=== PATIENT | female | born 1950 | race Caucasian/White ===

== ENCOUNTER 2024-04-12 09:30 | Outpatient (AMB) | payer MEDICARE, MEDICAID, SELFPAY ==
--- NOTE | 2024-04-12 09:31 | A.OFFVIS_ITS ---
Vital Signs 04/12/24 09:32 Weight 162 lb 7.691 oz BP 130/78 Blood Pressure Location Rt brachial Position Sitting Pulse 55 Pulse Source Pulse Oximeter Pulse Oximetry (%) 91 L Oxygen Delivery Method Room Air Intake Visit Reasons: athritis/MR RECIEVED Intake Note: Patient present today for arthritis office visit. 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 She continues to have hand pain. She reports dx carpal tunnel syndrome 15 years ago. She has bilateral knee pain. Hx c-spine surgery with hardware. She is experiencing neck pain for awhile. She does not recall starting MTX, FA and leflunomide last visit. PFSH Family History Mother Psoriasis Father Psoriasis Social History Alcohol intake: never Patient Tobacco Use Status: Never used Tobacco Review of Systems Const All systems reviewed & are unremarkable except as noted in HPI and below Physical Exam Vital Signs: Last Vital Signs Pulse 55 04/12/24 09:32 BP 130/78 04/12/24 09:32 Pulse Ox 91 L 04/12/24 09:32 Oxygen Delivery Method Room Air 04/12/24 09:32 Const General: healthy appearing and comfortable Resp Effort & Inspection: normal respiratory effort Cardio Rate: regular rate Rhythm: regular rhythm Heart sounds: S1 normal heart sound present and S2 normal heart sound present Extrem Other: Tender bilateral MCPs. Chronic synovial thickening present bilateral MCPs 2-3. Tender PIPs bilateral. Tender bilateral knees with limted ROM Tender bilateral ankles and MTPs. Office Procedures AMB Joint Injection/Aspiration Joint Injection/Aspiration Details: Bilateral knees Prep: site was prepped using aseptic technique Procedure: The patient tolerated the procedure well Coding 07042 - Large joint Additional procedure code (CPT) needed (Modifier for bilateral procedure) Office Meds Kenalog 40 mg/mL suspension for injection Performing Provider: Raffi Nichole MD Performing Location: [facility] [facility] Administered by: Raffi Nichole MD on 04/12/24 12:12 Dose Route Admin Location Dispensed Lot Number Expiration Date [facility] Card Cutter 40 mg intra-articular right knee 1 mL [id number] [employer] 40 mg intra-articular left knee 1 mL [id number] [employer] lidocaine (PF) 10 mg/mL (1 %) injection solution Performing Provider: Raffi Nichole MD Performing Location: [facility] Administered by: Raffi Nichole MD on 04/12/24 12:12 Dose Route Admin Location Dispensed Lot Number Expiration Date [facility] Card Cutter 20 mg Infiltration bilateral knees 2 mL [id number] [facility] Assessment & Plan Assessment & Plan (1) Psoriatic arthritis: Comment: Uncontrolled. Not on DMARD treatment Code(s): L40.50 - Arthropathic psoriasis, unspecified Category: Medical Plan: Labs for disease and drug monitoring ordered. After lab results are reviewed, will consider sending rx MTX vs leflunomide. (2) Other penitentiary (current) drug therapy: Code(s): Z79.899 - Other penitentiary (current) drug therapy Category: Medical Plan: see above (3) Osteoarthritis of knees, bilateral: Comment: Uncontrolled pain. Code(s): M17.0 - Bilateral primary osteoarthritis of knee Category: Medical Plan: She received bilateral knee cortisone injections today. Encouraged exercise. (4) Carpal tunnel syndrome, bilateral: Comment: Uncontrolled. Left hand is more symptomatic than right hand. Code(s): G56.03 - Carpal tunnel syndrome, bilateral upper limbs Category: Medical Plan: rx cockup wrist braces prescribed to wear at night. Plan . Orders: Orders Aspartate Amino Transferase Today L40.50 - Arthropathic psoriasis, unspecified, Z79.899 - Other director long term care (current) drug therapy Creatinine Today L40.50 - Arthropathic psoriasis, unspecified, Z79.899 - Other director long term care (current) drug therapy Hepatitis B,C Profile Today L40.50 - Arthropathic psoriasis, unspecified, Z79.899 - Other director long term care (current) drug therapy AMB Joint Injection/Aspiration Today M17.0 - Bilateral primary osteoarthritis of knee Alanine Aminotransferase Today L40.50 - Arthropathic psoriasis, unspecified, Z79.899 - Other penitentiary (current) drug therapy C Reactive Protein Today L40.50 - Arthropathic psoriasis, unspecified, Z79.899 - Other penitentiary (current) drug therapy Complete Blood Count Auto Diff Today L40.50 - Arthropathic psoriasis, unspecified, Z79.899 - Other penitentiary (current) drug therapy Erythrocyte Sedimentation Rate Today L40.50 - Arthropathic psoriasis, unspecified, Z79.899 - Other director long term care (current) drug therapy T Spot TB Today L40.50 - Arthropathic psoriasis, unspecified, Z79.899 - Other penitentiary (current) drug therapy Medications: New Kenalog (triamcinolone acetonide) 80 mg (2 mL) intra-articular ONCE 2 mL 0RF NS M17.0 - Bilateral primary osteoarthritis of knee lidocaine (PF) 20 mg (2 mL) Infiltration ONCE 2 mL 0RF M17.0 - Bilateral primary osteoarthritis of knee [Bilateral cockup wrist brace] Wear at night only 2 ea 0RF Carpal tunnel syndrome G56.03 - Carpal tunnel syndrome, bilateral upper limbs Coding Level of Care Code Est Pt Level 4 (78140) Complex EM visit Add On G2211 Diagnoses Psoriatic arthritis L40.50 Other director long term care (current) drug therapy Z79.899 Osteoarthritis of knees, bilateral M17.0 Carpal tunnel syndrome, bilateral G56.03 CPT Codes Coding - 98001 Large joint: 30968 - Large joint ([id number])
[2024-04-12 09:32] VITALS: BP 130/78; PULSE 55; O2SAT 91
== END 2024-04-12 10:41 | disposition home or self-care (01) ==
PROVIDERS: Visit Provider Internal Medicine Rheumatology
DX: L40.50 Arthropathic psoriasis, unspecified (principal); Z79.899 Other long term (current) drug therapy; M17.0 Bilateral primary osteoarthritis of knee; G56.03 Carpal tunnel syndrome, bilateral upper limbs
CPT/HCPCS: 20610; 99214

== ENCOUNTER → 2024-04-12 09:30 | Outpatient (BNVA) | payer MEDICARE, SELFPAY | PROVIDERS: Visit Provider Internal Medicine Rheumatology | DX: M17.0 Bilateral primary osteoarthritis of knee (principal); L40.50 Arthropathic psoriasis, unspecified; G56.03 Carpal tunnel syndrome, bilateral upper limbs; Z79.899 Other long term (current) drug therapy | CPT/HCPCS: 20610; 99212; J2003; J3300 ==

== ENCOUNTER 2024-09-18 13:37 | Outpatient (REF) | payer MEDICARE, MEDICAID, SELFPAY ==
--- OUTSIDE RECORDS SUMMARY | 2024-09-18 17:47 | XMS_ITS | Continuity of Care Document ---
Author Organization [facility], Main Office Address [address] [place] [address] Assessment No assessment recorded. Plan of Treatment Reminders Order Date Submit Date Provider Last Modified By Organization Details Last Modified Time Details Appointments 7 DAYS 2024 10:50A M [facility] Not available Not available Not available Lab None recorded. Referral nephrolog ist referral 2024 025 ATHENAFAX Liset Ross DO, [address] [place], [address], 09/17/2024 14:18:33 Procedures None recorded. Surgeries None recorded. Imaging None recorded. Medication Orders None recorded. Patient TargetsNo targets recorded. Patient InstructionsNo instructions recorded. Reason for Referral Associate Professor Of Theology Referral for Ch ronic kidney disease stage 3A Referring Physician: Evelia Brennan, Internal Medicine, Encounter Date: 09/13/2024 Results Created Date Observation Date Name Description Value Unit Range Abnormal Flag Note LastModifiedBy Organization Detail LastModifiedTime 09/12/19 25 07/25/2024 , [facility] ardio gram No observ ation record ed. [email or web address] Not Available 08/28 22:38:01 09/12/19 25 12/31/2021 MAMMO , scree ramiro, digit al, bilat eral No observ ation record ed. [email or web address] Not Available 08/28 22:38:43 Result Notes None recorded. Problems Name Problem SNOMED Code Status Onset Date Resolution Date Notes Provider Name and Address Organization Details Recorded Time Anemia 137148459 [facility] Arthritis 9773102 Active 2024 Chanell Carranza m null, [place] [facility] 22:45:35 Meyer's esophagus 410139175 Active 2024 Chanell Carranza m null, [place] [facility] 22:45:40 Primary malignant neoplasm of right lung 202673072 Active 2024 Chanell Carranza m null, [place] - [facility] 5 22:45:49 Chronic kidney disease 901241448 Active 2024 Chanell Carranza m null, [place] - [facility] 5 22:46:03 Claustropho veto 98368326 Active 2024 Chanell Carranza m null, [place] [facility] 22:46:10 Chronic obstructive pulmonary disease 41066208 Active 2024 Chanell Carranza m null, [place] [facility] 5 22:46:16 Gastroesoph ageal reflux disease 547249189 Active 2024 Chanellaudra rojas null, [place] [facility] 22:46:21 Hypertensiv e disorder 62077752 Active 2024 Chanell rojas null, [place] [facility] 22:46:31 Hypocalcemi a 2790644 Active 2024 Chanell Carranza m null, [place] [facility] 22:46:38 Hypothyroid ism 86695747 Active 2024 Chanellaudra rojas null, [place] [facility] 22:46:44 Cyst of left ovary 5060273995477 9108 Active 2024 Chanell Carranza m null, [place] - [facility] 5 22:47:09 Major depressive disorder 971031291 Active 2024 Chanellaudra Carranza m null, [place] [facility] 22:47:30 Panic attack 719749048 Active 2024 Chanell Carranza m null, [place] [facility] 22:47:39 Psoriasis 8559544 Active 2024 Chanellaudra Carranza m null, [place] [facility] 22:47:48 Malignant tumor of kidney 916377119 Active 2024 Chanell fountain, [place] - [facility] 5 22:47:54 Right bundle branch block 31259736 Active 2024 Chanell rojas null, [place] - [facility] 5 22:47:59 Urinary incontinenc e 566689126 Active 2024 Chanell rojas null, [place] [facility] 22:48:10 Atrophic vaginitis 24611310 Active 2024 Chanell rojas null, [place] [facility] 22:48:21 Secondary hyperparath yroidism 68790719 Active 2024 B[facility] [address] [place] [address], [place], [address], 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 Procedures Surgical History Date Name Laterality Status Provider Name and Address Organization Details Recorded Time 12/31 Most [facility] 22:38:51 Cataract Surgery completed Chanell [facility] 22:48:35 bilobectomy of lung completed [facility] - [facility] 5 22:48:50 esophagogastroduodenoscopy completed [facility] - [facility] 5 22:49:43 Imaging Results None recorded. Procedure Notes None recorded. Medical Equipment None Reported. Allergies Allergen ID Allergen Name Allergen Category Reaction Reaction Severity Criticality Documentation Date Start Date Code Code System Note Provider Name and Address Organization Details Recorded Time 7587 house dust allergeni c extract environme nt,medica tion Not available Not available Not available 09/11/2024 47996 9 RxNorm Chanell fountain, [place] - [facility] 5 22:40:30 7588 mold extract environme nt Not available Not available Not available 09/11/2024 99392 8 RxNorm Chanell rojas null, [place] - [facility] 22:40:35 7589 grass pollen environme nt,medica tion Not available Not available Not available 09/11/2024 06585 UNK Chanell rojas null, [place] - [facility] 22:40:43 7590 amlodipin e medicatio n Not available Not available Not available 09/11/2024 55726 RxNorm [facility] [address] [facility], [place], [address], [place] [facility] 13:07:24 7591 barium sulfate medicatio n Not available Not available Not available 09/11/2024 1331 RxNorm [facility] [address] [facility], [facility] [address], [place], [address], [place] [facility] 13:07:36 7592 gabapenti n medicatio n Not available Not available Not available 09/11/2024 57853 RxNorm [facility] [address] [facility], [facility] [address], [place], [address], [place] [facility] 13:07:44 Medications Name Sig Start Date Stop Date Status Note LastModified by Organization Details LastModified Time atorvastati n 40 mg tablet Take 1 tablet every day by oral route. active Not Available Not Available No t Available cefpodoxime 200 mg tablet TAKE 1 TABLET BY MOUTH EVERY 12 HOURS FOR 3 DAYS 09/13 completed Not Available Not Available Not Available azithromyci n 250 mg tablet TAKE 2 TABLETS BY MOUTH TODAY, THEN TAKE 1 TABLET DAILY FOR 4 DAYS DIRECTED 09/13 completed Not Available Not Available Not Available citalopram 10 mg tablet Take 1 tablet every day by oral route. active Not Available Not Available No t Available prednisone 20 mg tablet TAKE 2 TABLETS BY MOUTH EVERY DAY FOR 5 DAYS 09/13 completed Not Available Not Available Not Available metoprolol succinate ER 100 mg tablet,exte nded release 24 hr Take 1 tablet every day by oral route. active Not Available Not Available No t Available leflunomide 10 mg tablet TAKE 1 TABLET DAILY 09/13 completed Not Available Not Available Not Available triamcinolo ne acetonide 0.1 % topical cream 1 APPLICATI ON TOPICALLY 3 TIMES A DAY,X14 DAYS 09/13 completed Not Available Not Available Not Available magnesium oxide 400 mg (241.3 mg magnesium) tablet Take 1 tablet every day by oral route. active Not Available Not Available No t Available levothyroxi ne 125 mcg tablet Take 1 tablet every day by oral route. active Not Available Not Available No t Available omeprazole 20 mg capsule,del ayed release Take 1 capsule every day by oral route. active Not Available Not Available No t Available folic acid 1 mg tablet TAKE 1 TABLET BY MOUTH EVERY DAY 09/13 completed Not Available Not Available Not Available zolpidem 5 mg tablet TAKE 1 TABLET BY MOUTH EVERYDAY AT BEDTIME 09/13 completed Not Available Not Available Not Available ergocalcife rol (vitamin D2) 1,250 mcg (50,000 unit) capsule Take 1 capsule every week by oral route. active Not Available Not Available No t Available colchicine 0.6 mg tablet PLEASE SEE ATTACHED FOR DETAILED DIRECTION S 09/13 completed Not Available Not Available Not Available lisinopril 40 mg tablet Take 1 tablet every day by oral route. active Not Available Not Available No t Available doxycycline hyclate 100 mg tablet TAKE 1 CAPSULE BY MOUTH EVERY 12 HOURS,X3 DAYS 09/13 completed Not Available Not Available Not Available mometasone 0.1 % topical solution USE TOPICALLY ON SCALP ONCE DAILY NEEDED. 09/13 completed Not Available Not Available Not Available Lactobacill us acidoph-L.b ulgaricus 1 million cell tablet TAKE 4 TABLETS BY MOUTH 3 TIMES A DAY FOR 3 DAYS 09/13 completed Not Available Not Available Not Available Vitals Date Recorded Body weight Body mass index (BMI) Body height Heart rate Oxygen saturation Oxygen saturation in Arterial blood by Pulse oximetry Systolic blood pressure Diastolic blood pressure Provider Name and Address Organization Details Last Updated DateTime 5 50049.8 5 g 27.7 kg/m2 157.48 cm 82 /min 98 % 98 % 140 mm[Hg] 90 mm[Hg] Mary reagan [place] - [facility] 5 14:41:43 Social History Question Answer Notes LastModified by Organizat ion Details LastModified Time Tobacco Smoking Status Former Smoker Chanell Burrell null, [place] - [facility] 09/11/2024 22:41:15 When Did You Quit Smoking? 11-15yearssi nceladmitri abarca mburlingham Information not available 09/13/2024 Sex: Unknown Functional Status None recorded. Mental Status None recorded. Family History Relationship Description Onset Age of this Age Resolved Age Notes LastModified by Organization Details LastModified Time Mother Diabetes mellitus [email or web address] Not available 08/28 22:41:38 Mother Hyperlipidem ia mburlingham Not available 08/28 22:42:13 Mother Hypertensive disorder m[place]ham Not available 08/28 22:43:18 Brother Diabetes mellitus mburlingham Not available 08/28 22:41:38 Brother Hyperlipidem ia mburlingham Not available 08/28 22:42:13 Brother Hyperlipidem ia mburlingham Not available 08/28 22:42:13 Brother Hypertensive disorder mburlingham Not available 08/28 22:43:18 Brother Hypertensive disorder mburlingham Not available 08/28 22:43:18 Brother Chronic obstructive pulmonary disease mburlingham Not available 08/28 22:44:08 Father Hyperlipidem ia mburlingham Not available 08/28 22:42:13 Father Hypertensive disorder m[place]lingham Not available 08/28 22:43:18 Father Coronary arterioscler osis m[place]lingham Not available 08/28 22:44:20 Father Dementia mburlingham Not availa ble 09/11/2024 22:44:26 Father Cerebrovascu lar accident mburlingham Not available 0 09/11/2024 22:44:34 Sister Hypertensive disorder m[place]lingham Not available 08/28 22:43:18 Sister Anxiety mburlingham Not availab le 09/11/2024 22:43:38 Sister Depressive disorder mburlingham Not available 08/28 22:43:49 Son Hypertensive disorder m[place]lingham Not available 08/28 22:43:18 Son Crohn's disease [facility] Not available 08/28 22:43:29 Medical History No medical history recorded. Gynecological History Statement/Question Response Most Recent Mammogram 12/31/2021 Obstetrics History GPAL:G 0 P 0 0 0 0 Immunizations Vaccine Type Date Status Note Provider Nam e and Address Organization Details Recorded Time Tdap 09/08/2011 completed Chanell fountain [place] - [facility] 09/11/2024 22:45:14 Past Encounters Encounter ID Performer Location Encounter Start Date Encounter Closed Date Diagnosis/Indication Diagnosis SNOMED-CT Code Diagnosis ICD10 Code Diagnosis Note [id number] [facility] Main Office [address] [place], [place] [address] [address] [place] [address] 09/13/2024 14:34:34 09/13/2024 15:17:01 First encounter by subject 837749529 Z76.89 The following time was spent on todays E/M encounter, including preparing for the visit, reviewing results, seeing the patient, and documentat ion on the date of service of the encounter: {{ 65#}} 97825 15-29 [id number] 03 30-44 [id number] 04 45-59 [id number] 05 60-74 [id number] 12 10-19 [id number] 13 20-29 [id number] 14 30-39 [id number] 15 40-54 minutes Limited records at time of visit, review of most recent PCP and hospitaliz ation, pt close follow up to facilitate care History of malignant neoplasm of kidney 485349930 Z85.528 followed by oncology Secondary hyperparathyroidism 51059806 N25.81 secondary to CKD, multiple recent hospitaliz ations for low Vitamin D3, magnesium Currently on Mg+ supplement , Vitamin D3 supplement History of malignant neoplasm of thoracic cavity structure 085027700 Z85.118 followed by oncology and pulmonolog y Anxiety 74670220 F41.9 chronic, stable Chronic ki dney disease stage 3A 782305668 N18.31 Health Concerns Section Related Observation LastModified by Organization Detai ls LastModified Time None Recorded Concern Status LastModified by Organization Details LastModified Time None Recorded Payers Encounter Date Sequence Insurance Name Policy Number Policy Beauchamp Covered Member ID Beauchamp Member ID Guarantor Name 09/13/2024 2 [place] [facility] Brandy Templeton [id number] Brandy Templeton 09/13/2024 1 [place] B[place] [employer] Brandy Templeton [id number] Brandy Templeton Notes Date Note Type Note Provider Name and Address Organization Details Recorded Time 5 text/html here to establish care, limited medical records available at visitShe is accompanied by friendPMH:Dr Nichole in [place] for RA, OA and psoriatic arthritismetastatic renal cell CA with left lung nodule , followed by oncology Dr Schafer and metastatic lung nodule from renal cell CA, Stage II right lung CA CA Dr Marie pulmonologySocial: lives alone with cat Darinel, former smoker quit 8 years, alcohol none, recreational drug noneHM: colonoscopy Cologuard < 2 years, mammogram declines, Immunizations due for Tdap Recent hospitalization for calcium and magnesium imbalance due to secondary hyperparathyroidism due to CKD Seen in ED for hypomagensium 09/07/24 with IV infusionSeen b her PCP B[facility] L[facility] [address] [place] [address] [address], [place], [address], [place] - [facility] 09/14/2024 15:13:04 OBGyn Episode No OBEpisode recorded.
--- OUTSIDE RECORDS SUMMARY | 2024-09-18 17:47 | XMS_ITS | Data Portability ---
Author Organization [facility], [employer] Address [address] [place] [address] Assessment No assessment recorded. Plan of Treatment Reminders Order Date Submit Date Provider Last Modified By Organization Details Last Modified Time Details Appointments 7 DAYS 2024 10:50A M [facility] Not available Not available Not available Lab None recorded. Referral nephrolog ist referral 2024 025 NERISENAFAKalpesh WillinghamLisetreji Melendezman DO, [address] [place], [address], 09/17/2024 14:18:33 Procedures None recorded. Surgeries None recorded. Imaging None recorded. Medication Orders None recorded. Patient TargetsNo targets recorded. Patient InstructionsNo instructions recorded. Reason for Referral Section Repairer Referral for Ch ronic kidney disease stage 3A Referring Physician: Evelia Brennan, Internal Medicine, Encounter Date: 09/13/2024 Results Created Date Observation Date Name Description Value Unit Range Abnormal Flag Note LastModifiedBy Organization Detail LastModifiedTime 09/12/1907/25/2024 US, echo ardio gram No observ ation record ed. [email or web address] Not Available 08/28 22:38:01 09/12/19 25 12/31/2021 MAMMO , scree ramiro, digit al, bilat eral No observ ation record ed. [email or web address] Not Available 08/28 22:38:43 Result Notes None recorded. Problems Name Problem SNOMED Code Status Onset Date Resolution Date Notes Provider Name and Address Organization Details Recorded Time Anemia 888479417 Active 2024 Chanell fountain [facility] 22:45:30 Arthritis 3833666 Active 2024 Chanell Burlingha m null, [place] [facility] 22:45:35 Meyer's esophagus 235723464 Active 2024 Chanell Carranza m null, [place] [facility] 22:45:40 Primary malignant neoplasm of right lung 577244679 Active 2024 Chanell Carranza m null, [place] - [facility] 5 22:45:49 Chronic kidney disease 765657106 Active 2024 Chanell Carranza m null, [place] [facility] 22:46:03 Claustropho veto 20426137 Active 2024 Chanell Carranza m null, [place] [facility] 22:46:10 Chronic obstructive pulmonary disease 50893269 Active 2024 Chanell Carranza m null, [place] [facility] 22:46:16 Gastroesoph ageal reflux disease 656127112 Active 2024 Chanell rojas null, [place] - [facility] 22:46:21 Hypertensiv e disorder 69489891 Active 2024 Chanell Carranza m null, [place] [facility] 22:46:31 Hypocalcemi a 0953485 Active 2024 Chanell Carranza m null, [place] - [facility] 22:46:38 Hypothyroid ism 90388561 Active 2024 Chanell Carranza m null, [place] - [facility] 22:46:44 Cyst of left ovary 0911745034089 9108 Active 2024 Chanell Carranza m null, [place] - [facility] 22:47:09 Major depressive disorder 994780254 Active 2024 Chanell Carranza m null, [place] [facility] 22:47:30 Panic attack 473639619 Active 2024 Chanell Carranza m null, [place] [facility] 22:47:39 Psoriasis 6246568 Active 2024 Chanell Carranza m null, [place] [facility] 22:47:48 Malignant tumor of kidney 400351500 Active 2024 Chanell rojas null, [place] - [facility] 22:47:54 Right bundle branch block 52164204 Active 2024 Chanell rojas null, [place] - [facility] 22:47:59 Urinary incontinenc e 216150150 Active 2024 Chanell rojas null, [place] - [facility] 22:48:10 Atrophic vaginitis 46676954 Active 2024 Chanell rojas null, [place] - [facility] 22:48:21 Secondary hyperparath yroidism 18484591 Active [address] [address] [address] [place] [address], [place], [place], [address], [place] [facility] 12:06:55 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 Procedures Surgical History Date Name Laterality Status Provider Name and Address Organization Details Recorded Time 12/31 Most Recent Mammogram completed Chanell [place] - [facility] 22:38:51 Cataract Surgery completed [facility] 22:48:35 bilobectomy of lung completed [facility] [place] [facility] 22:48:50 esophagogastroduodenoscopy completed [facility] [place] [facility] 22:49:43 Imaging Results Imaging Date Name Status LastModified by Organization Details LastModified Time 07/25/2024 US, echocardiogram completed [facility] Infor mation not available 09/11/2024 22:38:01 12/31/2021 MAMMO, screening, digital, bilateral completed [facility] Information not available 09/11/2024 22:38:43 Procedure Notes None recorded. Medical Equipment None Reported. Allergies Allergen ID Allergen Name Allergen Category Reaction Reaction Severity Criticality Documentation Date Start Date Code Code System Note Provider Name and Address Organization Details Recorded Time 7587 house dust allergeni c extract environme nt,medica tion Not available Not available Not available 09/11/2024 36703 9 RxNorm Chanell rojas null, [place] - [facility] 22:40:30 7588 mold extract environme nt Not available Not available Not available 09/11/2024 12792 8 RxNorm Chanell rojas null, [place] - [facility] 22:40:35 7589 grass pollen environme nt,medica tion Not available Not available Not available 09/11/2024 45693 UNK Chanell rojas null, [place] - [facility] 22:40:43 7590 amlodipin e medicatio n Not available Not available Not available 09/11/2024 46026 RxNorm [facility] L[facility] [address] [facility], [facility] [address], [place], [address], [facility] - [facility] 13:07:24 7591 barium sulfate medicatio n Not available Not available Not available 09/11/2024 1331 RxNorm B[facility] LIGHT [address] [facility], [facility] [address], [place], [address], [facility] - [facility] Primary 13:07:36 7592 gabapenti n medicatio n Not available Not available Not available 09/11/2024 83342 RxNorm [facility] L[facility] [address] [facility] [address], [place], [place], [address], [facility] 5 13:07:44 Medications Name Sig Start Date Stop [...] and Address Organization Details Last Updated DateTime 95646.8 5 g 27.7 kg/m2 157.48 cm 82 /min 98 % 98 % 140 mm[Hg] 90 mm[Hg] Mary reagan [place] [facility] 14:41:43 Social History Question Answer Notes LastModified by Organizat ion Details LastModified Time Tobacco Smoking Status Former Smoker Chanell Burrell [facility] [place] [facility] 09/11/2024 22:41:15 When Did You Quit Smoking? 11-15yearssi ncelastcigar ette mburlingham Information not available 09/13/2024 Sex: Unknown [...] Not available 08/28 22:43:18 Son Crohn's disease mburlingham Not available 08/28 22:43:29 Medical History No medical history recorded. Gynecological History Statement/Question Response Most Recent Mammogram 12/31/2021 Obstetrics History GPAL:G 0 P 0 0 0 0 Immunizations Vaccine Type Date Status Note Provider Nam e and Address Organization Details Recorded Time Tdap 09/08/2011 completed Chanell fountain [place] - [facility] 09/11/2024 22:45:14 Past Encounters Encounter ID Performer Location Encounter Start Date Encounter Closed Date Diagnosis/Indication Diagnosis SNOMED-CT Code Diagnosis ICD10 Code Diagnosis Note [id number] B[facility] L[facility] Main Office [address] [place] [address] [address] [facility] [place] [address] 09/13/2024 14:34:34 09/13/2024 15:17:01 First encounter by subject 799920195 Z76.89 The following time was spent on todays E/M encounter, including preparing for the visit, reviewing results, seeing the patient, and documentat ion on the date of service of the encounter: {{ 65#}} 97807 15-29 03 30-44 [id number] 04 45-59 [id number] 05 60-74 [id number] 12 10-19 [id number] 13 20-29 amqbosz048 14 30-39 yxunkvc449 15 40-54 minutes Limited records at time of visit, review of most recent PCP and hospitaliz ation, pt close follow up to facilitate care History of malignant neoplasm of kidney 836344629 Z85.528 followed by oncology Secondary hyperparathyroidism 39159447 N25.81 secondary to CKD, multiple recent hospitaliz ations for low Vitamin D3, magnesium Currently on Mg+ supplement , Vitamin D3 supplement History of malignant neoplasm of thoracic cavity structure 105264139 Z85.118 followed by oncology and pulmonolog y Anxiety 39739939 F41.9 chronic, stable Chronic ki dney disease stage 3A 469511727 N18.31 Health Concerns Section Related Observation LastModified by Organization Detai ls LastModified Time None Recorded Concern Status LastModified by Organization Details LastModified Time None Recorded Advance Directives Directive None Recorded Payers Encounter Date Sequence Insurance Name Policy Number Policy Beauchamp Covered Member ID Beauchamp Member ID Guarantor Name 09/13/2024 2 [place] Brandy Templeton [id number] Brandy Templeton 09/13/2024 1 [place] [employer] Brandy Templeton [id number] Brandy Templeton Notes Date Note Type Note Provider Name and Address Organization Details Recorded Time 5 text/html here to establish care, limited medical records available at visitShe is accompanied by friendPMH:Dr Nichole in [place] for RA, OA and psoriatic arthritismetastatic renal cell CA with left lung nodule , followed by oncology Dr Schafer and metastatic lung nodule from renal cell CA, Stage II right lung CA CA Dr Marie pulmonologySocial: lives alone with theodore Tena, former smoker quit 8 years, alcohol none, recreational drug noneHM: colonoscopy Cologuard < 2 years, mammogram declines, Immunizations due for Tdap Recent hospitalization for calcium and magnesium imbalance due to secondary hyperparathyroidism due to CKD Seen in ED for hypomagensium 09/07/24 with IV infusionSeen b her PCP BEVERLY LIGHT [address] [place] [address], [address], [place] [facility] 09/14/2024 15:13:04 OBGyn Episode No OBEpisode recorded.
[2024-09-18 18:23] LABS: MANUAL DIFF FLAG NO
[2024-09-18 18:37] LABS: Basophils Absolute Auto 0.1 X10*3/uL (0.0-0.2); Basophils Percent Auto 1.3 % (0-2); Eosinophils Absolute Auto 0.2 X10*3/uL (0.0-0.4); Eosinophils Percent Auto 3.3 % (0-4); Hematocrit 32.2 % (37.0-47.0); Hemoglobin 10.3 g/dl (12.0-16.0); Imm Gran Abs Auto 0.03 X10*3/uL (0.00-0.03); Imm Gran Pct Auto 0.5 % (0.0-0.4); Lymphocytes Absolute Auto 1.6 X10*3/uL (1.2-4.9); Lymphocytes Percent Auto 25.9 % (20-40); Mean Platelet Volume 11.1 fL (9.4-12.3); Monocytes Absolute Auto 0.6 X10*3/uL (0.1-1.2); Monocytes Percent Auto 9.1 % (2-11); Neutrophils Absolute Auto 3.7 x10*3/uL (2.0-8.3); Neutrophils Percent Auto 59.9 % (45-73); Platelet Count 292 X10*3/uL (160-400); Red Blood Count 3.32 X10*6/uL (4.20-5.50); Red Cell Distribution Width 14.7 % (11.0-16.0); White Blood Count 6.1 X10*3/uL (4.8-10.8)
[2024-09-18 18:51] LABS: Alanine Aminotransferase 18 U/L (0-31); Aspartate Amino Transferase 27 U/L (5-31); Estimated Glomerular Filt Rate 49
== END 2024-09-18 13:38 | disposition home or self-care (01) ==
LOC: HO.HKASLDS 13:37
PROVIDERS: PCP Family Medicine; Visit Provider Internal Medicine Rheumatology
DX: M25.511 Pain in right shoulder (principal); M25.512 Pain in left shoulder; Z79.60 Long term (current) use of unspecified immunomodulators and immunosuppressants; L40.50 Arthropathic psoriasis, unspecified; G89.29 Other chronic pain; Z79.899 Other long term (current) drug therapy; G56.03 Carpal tunnel syndrome, bilateral upper limbs; M17.0 Bilateral primary osteoarthritis of knee
CPT/HCPCS: 20610; 36415; 82565; 84450; 84460; 85025; 99212; J2003; J3300

== ENCOUNTER 2024-09-18 13:37 | Outpatient (AMB) | payer MEDICARE, MEDICAID, SELFPAY ==
[2024-09-18 13:43] VITALS: BP 110/60; PULSE 58; O2SAT 98; BMI 27.4
--- NOTE | 2024-09-18 13:43 | A.OFFVIS_ITS ---
Vital Signs 09/18/24 13:43 Height 5 ft 2 in Weight 149 lb 11.102 oz BMI 27.4 BP 110/60 Blood Pressure Location Rt brachial Position Sitting Pulse 58 Pulse Oximetry (%) 98 Oxygen Delivery Method Room Air Intake Visit Reasons: Follow Up 3mo Intake Note: Patient present today for arthritis office visit. Accompanied by: sister in law Allergies No Known Allergies Allergy (Verified 09/18/24 13:49) HPI HPI Follow Up 3mo: Details: Patient's [id number] eyes present during visit. MTX caused stomach upset, bloating, dirrhea, nausea. She was taking folic acid every day. She does not recall if she took methotrexate weekly. She may have taken methotrexate 1 tablet daily. She had admissions for influenza, pneumonia, and electrolyte abnormalities in the last 2 months. She had low vitamin-D, magnesium and abnormal calcium. Her parathyroid hormone was elevated. She was given magnesium and calcium in the hospital. She has been prescribed vitamin-D and magnesium supplement. Weakness has improved. She had muscle cramps in her feet when her magnesium was very low. She continues to have pain in her muscles. Knee cortisone injections lasted at least 2 months. [facility] Medical History Vitamin B 12 deficiency Parathyroid abnormality Family History Mother Psoriasis Father Psoriasis Social History Alcohol intake: never Patient Tobacco Use Status: Never used Tobacco Review of Systems Const All systems reviewed & are unremarkable except as noted in HPI and below Physical Exam Vital Signs: Last Vital Signs Pulse 58 09/18/24 13:43 BP 110/60 09/18/24 13:43 Pulse Ox 98 09/18/24 13:43 Oxygen Delivery Method Room Air 09/18/24 13:43 BMI result Body Mass Index 27.4 Const Other: General: Comfortable CVS: RRR Respiratory: clear to auscultation bilaterally. Good respiratory effort Skin: No lesions seen MSK: Tender right 3rd MCP and left PIPs. Tender bilateral shoulders. Right s houlder abduction 90 degrees, left shoulder abduction 110 degrees with full internal rotation but limited full external rotation. Tender bilateral knees on palpation. Valgus deformity of bilateral knees. Tender ankles. No synovitis. Office Procedures AMB Joint Injection/Aspiration Joint Injection/Aspiration Details: Bilateral knee joints Prep: site was prepped using aseptic technique Injected into each joint: 40 mg of, Kenalog, with 1 mL of and 1% plain lidocaine using 25 gauge 1-1/2 inch needle Procedure: The patient tolerated the procedure well. Postprocedure protocol was discussed with patient. Coding 43880 - Bilateral Large Joint Procedure code (CPT) selection complete AMB Joint Injection/Aspiration Coding 60580 - Bilateral Large Joint Procedure code (CPT) selection complete Office Meds lidocaine (PF) 10 mg/mL (1 %) injection solution Performing Provider: Raffi Nichole MD Performing Location: [facility] [place] [facility] [place] [facility] Administered by: Raffi Nichole MD on 09/18/24 21:02 Dose Route Admin Location Dispensed Lot Number Expiration Date [facility] [employer] 10 mg Infiltration 2 mL [id number] [employer] Kenalog 40 mg/mL suspension for injection Performing Provider: Raffi Nichole MD Performing Location: [facility] [place] [facility] Administered by: Raffi Nichole MD on 09/18/24 21:02 Dose Route Admin Location Dispensed Lot Number Expiration Date [facility] [employer] 40 mg intra-articular 1 mL [id number] [employer] lidocaine (PF) 10 mg/mL (1 %) injection solution Performing Provider: Raffi Nichole MD Performing Location: [facility] [place] [facility] Administered by: Raffi Nichole MD on 09/18/24 21:02 Dose Route Admin Location Dispensed Lot Number Expiration Date [facility] [employer] 10 mg Infiltration 2 mL [id number] [employer] Kenalog 40 mg/mL suspension for injection Performing Provider: Raffi Nichole MD Performing Location: [facility] [place] [facility] Administered by: Raffi Nichole MD on 09/18/24 21:02 Dose Route Admin Location Dispensed Lot Number Expiration Date [facility] [employer] 40 mg intra-articular 1 mL [id number] [facility] Assessment & Plan Assessment & Plan (1) Psoriatic arthritis: Comment: Uncontrolled. She may have taken methotrexate tablet daily instead of 12.5 mg once weekly contributing to GI side effects. I am ordering labs. If labs are stable, I will prescribe methotrexate 12.5 mg once week and folic acid 2 mg daily to reduce the risk of GI side effects. We discussed the importance of taking methotrexate as prescribed. Code(s): L40.50 - Arthropathic psoriasis, unspecified Category: Medical Plan: Labs for disease and drug monitoring ordered. After lab results are reviewed, I will consider sending rx MTX 12.5 mg once weekly and folic acid 2 mg daily. She will then need labs 1 month after methotrexate is restarted: CBC, creatinine, AST, ALT. Return to clinic in 3 months (2) Bilateral shoulder pain: Comment: Limited range of motion. Chronic pain. I suspect osteoarthritis is contributi ng. Code(s): M25.511 - Pain in right shoulder; M25.512 - Pain in left shoulder Category: Medical Qualifiers: Chronicity: chronic Qualified Code(s): M25.511 - Pain in right shoulder; M25.512 - Pain in left shoulder; G89.29 - Other chronic pain Plan: Bilateral x-rays ordered. Patient prefers to have x-rays done in [place]. Requisition given to patient. She will benefit from PT but would like to defer at this time Return to clinic in 3 months (3) Other termite control servicer (current) drug therapy: Code(s): Z79.899 - Other penitentiary (current) drug therapy Category: Medical Plan: see above (4) Carpal tunnel syndrome, bilateral: Comment: Uncontrolled. Left hand is more symptomatic than right hand. Code(s): G56.03 - Carpal tunnel syndrome, bilateral upper limbs Category: Medical Plan: rx cockup wrist braces prescribed to wear at night. (5) Osteoarthritis of knees, bilateral: Comment: Uncontrolled pain. Last cortisone injections lasted 2 months. Code(s): M17.0 - Bilateral primary osteoarthritis of knee Category: Medical Plan: She received bilateral knee cortisone injections today. Encouraged exercise. Return to clinic in 3 months Plan . Orders: Orders XR shoulder RT min 2V Today M25.511 - Pain in right shoulder, M25.512 - Pain in left shoulder, Z79.899 - Other termite control servicer (current) drug therapy XR shoulder LT min 2V Today M25.511 - Pain in right shoulder, M25.512 - Pain in left shoulder AMB Joint Injection/Aspiration Today M17.0 - Bilateral primary osteoarthritis of knee AMB Joint Injection/Aspiration Today M17.0 - Bilateral primary osteoarthritis of knee Medications: Refilled [Bilateral cockup wrist brace] Wear at night only 2 ea 0RF Carpal tunnel syndrome G56.03 - Carpal tunnel syndrome, bilateral upper limbs Coding Level of Care Code Est Pt Level 4 (13966) Complex EM visit Add On G2211 Diagnoses Psoriatic arthritis L40.50 Chronic pain of both shoulders M25.511; M25.512; G89.29 Chronicity: chronic Other penitentiary (current) drug therapy Z79.899 Carpal tunnel syndrome, bilateral G56.03 Osteoarthritis of knees, bilateral M17.0 CPT Codes Coding - 12569 - Bilateral Large Joint: 36918 - Bilateral Large Joint ([id number]) Coding - 98461 - Bilateral Large Joint: 40860 - Bilateral Large Joint ([id number])
== END 2024-09-18 14:32 | disposition home or self-care (01) ==
LOC: HO.RHES 13:38
PROVIDERS: PCP Family Medicine; Visit Provider Internal Medicine Rheumatology
DX: L40.50 Arthropathic psoriasis, unspecified (principal); M25.511 Pain in right shoulder; M25.512 Pain in left shoulder; G89.29 Other chronic pain; Z79.899 Other long term (current) drug therapy; G56.03 Carpal tunnel syndrome, bilateral upper limbs; M17.0 Bilateral primary osteoarthritis of knee
CPT/HCPCS: 20610; 99214

== ENCOUNTER 2024-12-19 13:38 | Outpatient (AMB) | payer MEDICARE, MEDICAID, SELFPAY ==
--- NOTE | 2024-12-19 13:40 | MHC.OFFVIS ---
Vital Signs 12/19/24 13:44 Height 5 ft 2 in Weight 153 lb 6 oz BMI 28.0 BP 150/80 H Blood Pressure Location Rt brachial Position Sitting Pulse 73 Pulse Source Pulse Oximeter Pulse Oximetry (%) 95 Oxygen Delivery Method Room Air Intake Visit Reasons: 3 months Intake Note: Patient present today for arthritis office visit. Accompanied by: sister in law Allergies No Known Allergies Allergy (Verified 09/18/24 13:49) HPI HPI 3 months: Details: She did not do labs after taking MTX. Wearing wrist braces with benefit. Left knee pain 09/06. PFSH Medical History Vitamin B 12 deficiency Parathyroid abnormality Family History Mother Psoriasis Father Psoriasis Social History Alcohol intake: never Patient Tobacco Use Status: Never used Tobacco Physical Exam Vital Signs: Last Vital Signs Pulse 73 12/19/24 13:44 BP 150/80 H 12/19/24 13:44 Pulse Ox 95 12/19/24 13:44 Oxygen Delivery Method Room Air 12/19/24 13:44 BMI result Body Mass Index 28.0 Const Other: General: Comfortable CVS: RRR Respiratory: clear to auscultation bilaterally. Good respiratory effort Skin: No lesions seen MSK: Synovitis left 2nd MCP, tender left 2nd MCP and 3rd MCP. Tender bilateral shoulders. Right shoulder abduction 90 degrees, left shoulder abduction 110 degrees with full internal rotation but limited full external rotation. Tender bilateral knees on palpation. Valgus deformity of bilateral knees. Tender ankles. Office Procedures AMB Joint Injection/Aspiration Joint Injection/Aspiration Details: Left knee joint Prep: site was prepped using aseptic technique Injected: 40 mg of, Kenalog, with 1 mL of and 1% plain lidocaine Procedure: Informed verbal consent was obtained. The patient tolerated the procedure well. Postprocedure protocol was discussed with patient. Coding 07480 - Large joint Procedure code (CPT) selection complete Office Meds lidocaine (PF) 10 mg/mL (1 %) injection solution Performing Provider: Raffi Nichole MD Performing Location: [facility] – [place] [facility] Administered by: Alfredo Wing RN on 12/19/24 14:16 Dose Route Admin Location Dispensed Lot Number Expiration Date [facility] [place] [employer] 10 mg Infiltration 2 mL [id number] 10/27/26 28949-535-49 [employer] Total Dispensed Waste 2 mL 50 % Kenalog 40 mg/mL suspension for injection Performing Provider: Raffi Nichole MD Performing Location: [facility] – [place], [place] [facility] Administered by: Alfredo Wing RN on 12/19/24 14:16 Dose Route Admin Location Dispensed Lot Number Expiration Date [facility] [place] [employer] 40 mg intra-articular 1 mL [id number] 12/27/25 [address]-9 [employer] Total Dispensed Waste 1 mL 0 % Assessment & Plan Assessment & Plan (1) Psoriatic arthritis: Comment: Uncontrolled. She did not receive refill for methotrexate because she did not complete labs required for drug monitoring Code(s): L40.50 - Arthropathic psoriasis, unspecified Category: Medical Plan: Restart MTX 12.5 mg once weekly and folic acid 2 mg daily. She will then need labs 1 month after methotrexate is restarted: CBC, creatinine, AST, ALT. Lab requisition given to patient to have done local to her home. Return to clinic in 3 months (2) Bilateral shoulder pain: Comment: Chronic. Limited range of motion right worse than left. Left x-ray shows mild osteoarthritis. Right x-ray is normal. I suspect chronic rotator cuff tendinopathy contributing to her limited range of motion and pain. Code(s): M25.511 - Pain in right shoulder; M25.512 - Pain in left shoulder Category: Medical Qualifiers: Chronicity: chronic Qualified Code(s): M25.511 - Pain in right shoulder; M25.512 - Pain in left shoulder; G89.29 - Other chronic pain Plan: PT ordered for patient to have done local to her home in [place] Consider cortisone injection of right shoulder if range of motion does not improve with PT Return to clinic in 3 months (3) Other [facility] (current) drug therapy: Code(s): Z79.899 - Other superintendent terminal (current) drug therapy Category: Medical Plan: see above (4) Carpal tunnel syndrome, bilateral: Comment: Improved with wearing wrist braces at night. Left hand is more symptomatic than right hand. Code(s): G56.03 - Carpal tunnel syndrome, bilateral upper limbs Category: Medical Plan: Continue to wear wrist braces at night (5) Osteoarthritis of knees, bilateral: Comment: Uncontrolled pain in left knee. Code(s): M17.0 - Bilateral primary osteoarthritis of knee Category: Medical Qualifiers: Osteoarthritis type: primary Qualified Code(s): M17.0 - Bilateral primary osteoarthritis of knee Plan: She received cortisone injection to left knee Return to clinic in 3 months (6) Primary osteoarthritis, left shoulder: Code(s): M19.012 - Primary osteoarthritis, left shoulder Category: Medical Plan . Orders: Orders PT Evaluation and Treatment Today G89.29 - Other chronic pain, M19.012 - Primary osteoarthritis, left shoulder, M25.511 - Pain in right shoulder, M25.512 - Pain in left shoulder AMB Joint Injection/Aspiration Today M17.0 - Bilateral primary osteoarthritis of knee Medications: Refilled folic acid 2 mg (2 x 1 mg) PO DAILY 60 tabs 11RF folic acid 2 mg (2 x 1 mg) PO DAILY 60 tabs 11RF methotrexate sodium Take 5 tablets once weekly. Labs needed in 4 weeks. 12.5 mg (5 x 2.5 mg) PO QWEEK 28 days 20 tabs 0RF methotrexate sodium Take 5 tablets once weekly. Labs needed in 4 weeks. 12.5 mg (5 x 2.5 mg) PO QWEEK 20 tabs 0RF 28 days Coding Level of Care Code Est Pt Level 4 (37072) Complex EM visit Add On G2211 Diagnoses Psoriatic arthritis L40.50 Chronic pain of both shoulders M25.511; M25.512; G89.29 Chronicity: chronic Other penitentiary (current) drug therapy Z79.899 Carpal tunnel syndrome, bilateral G56.03 Primary osteoarthritis of both knees M17.0 Osteoarthritis type: primary Primary osteoarthritis, left shoulder M19.012 CPT Codes Coding - 85939 Large joint: 17275 - Large joint ([id number])
[2024-12-19 13:44] VITALS: BP 150/80; PULSE 73; O2SAT 95; BMI 28.0
--- OUTSIDE RECORDS SUMMARY | 2024-12-19 14:16 | XMS_ITS | Data Portability ---
Author Organization [place] - [facility], [employer] Address [address] [place] [id number] Assessment Encounter Date Assessment Date Assessment LastModified by Organization Details LastModified Time 09/20/2024 09/20/2024 The following ti me was spent on todays E/M encounter, including preparing for the visit, reviewing results, seeing the patient, and documentation on the date of service of the encounter: 91331 15-29 minutes 07822 30-44 minutes 73744 45-59 minutes 38942 60-74 minutes 83857 10-19 minutes 85771 20-29 minutes 47515 30-39 minutes 86567 40-54 minutes The following time was spent on todays E/M encounter, including preparing for the visit, reviewing results, seeing the patient, and documentation on the date of service of the encounter: 40 21599 15-29 minutes 35386 30-44 minutes 08658 45-59 minutes 96480 60-74 minutes 26954 10-19 minutes 29463 20-29 minutes 62058 30-39 minutes [id number] 40-54 minutes [email or web address] Not available 09/20/2024 13:17:08 09/28/2024 09/28/2024 Assessment - Possible low magnesium levels contributing to foot swelling and pain. - Hyperparathyroidism and vitamin D deficiency identified as underlying issues. - Potential plantar fasciitis causing foot pain. - Calcification of the mitral valve noted, which may contribute to fluid retention and electrolyte imbalances, though not directly related to current symptoms. Plan - Perform lab work today to assess magnesium level, calcium level, kidney function, and other electrolytes. This will help determine the cause of symptoms and guide further treatment. - Use Tylenol for pain management, avoiding ibuprofen due to existing kidney problems. - Apply topical Voltaren gel to the underside of the heels to alleviate pain associated with potential plantar fasciitis. - Implement ice and elevation for foot discomfort to reduce swelling and pain. - Monitor symptoms closely, and if there is a change such as feeling weak, confused, or generally unwell, go to the emergency room immediately due to the history of low electrolytes. - Blood pressure improved on recheck. Prescription - Voltaren gel, topical application on the underside of the heels for pain relief. Appointments - Lab work appointment today in the office for blood draw. During this encounter, 2 of the 3 elements of MDM addressed: (1)Number and Complexity of problems: 1 or more chronic illness with exacerbation, progression, or side effects of treatment (2)Amount/Complexity of data (need 1 out of 3 categories): Category 1: Any combination of 3 from the following: Review of prior external notes from each unique source, review of results of each unique test, ordering of each unique test, assessment requiring an independent historian) (3)Moderate Risk of morbidity from additional diagnostic testing or treatment (one needed): . [email or web address] Not available 09/28/2024 10:00:29 10/09/2024 10/09/2024 During this encounter, 2 of the 3 elements of MDM addressed: (1)Number and Complexity of problems: 1 or more chronic illness with exacerbation, progression, or side effects of treatment (2)Amount/Complexity of data (need 1 out of 3 categories): (3)Moderate Risk of morbidity from additional diagnostic testing or treatment (one needed): Prescription Drug management. [email or web address] Not available 10/09/2024 15:38:09 Plan of Treatment Reminders Order Date Submit Date Provider Last Modified By Organization Details Last Modified Time Details Appointments FOLLOW UP 2024 01:30P BEVERLY LONDON Not available Not available Not available Lab TSH + free T4, serum 2024 025 SN[facility], [address], [place], [address], 10/10/2024 10:06:51 calcium, ionized, quant ISE, serum or plasma 2024 025 SNOW [facility], [address], [place], [address], 09/29/2024 20:06:18 CMP, serum or plasma 2024 025 SNOW [facility], [address], [place], [address], 09/29/2024 20:06:18 magnesium , serum or plasma 2024 025 SNOW [facility], [address], [place], [address], 09/29/2024 20:06:18 Referral nephrolog ist referral 2024 025 [place] [address] [address] , [address] [place], [address], 11/06/2024 09:08:35 Procedures None recorded. Surgeries None recorded. Imaging None recorded. Medication Orders metoprolo l succinate ER 100 mg tablet,ex tended release 24 hr 2024 025 [id number], [address] [place], [address], 10/09/2024 15:36:14 cephalexi n 250 mg capsule 2024 025 [id number], [address] [place], [address], 10/09/2024 15:36:15 trazodone 50 mg tablet 2024 025 [facility][id number], [address] [place], [address], 09/20/2024 11:02:12 Patient TargetsNo targets recorded. Patient InstructionsNo instructions recorded. Reason for Referral [employer] General Supervisor Referral for Ch ronic kidney disease stage 3A Referring Physician: Evelia Brennan, Internal Medicine, Encounter Date: 09/13/2024 Results Created Date Observation Date Name Description Value Unit Range Abnormal Flag Note LastModifiedBy Organization Detail LastModifiedTime 09/29/19 25 09/28/2024 COMP. METAB OLIC PANEL (14) sodium 142 mmol/ L 134-14 4 normal Not Available [facility] ([facility]) [address] [facility] [place], [address], 09/29/2024 20:06:18 09/29/19 25 09/28/2024 COMP. METAB OLIC PANEL (14) chloride 103 mmol/ L 96-106 normal Not Available [facility] ([facility]) [address] [facility] [place], [address], 09/29/2024 20:06:18 09/29/19 25 09/28/2024 COMP. METAB OLIC PANEL (14) bilirubin, total 0.5 mg/dL 0.0-1. 2 normal Not Available [facility] ([facility]) [address] [facility] [place], [address], 09/29/2024 20:06:18 09/29/19 25 09/29/2024 COMP. METAB OLIC PANEL (14) glucose 133 mg/dL 70-99 above high normal Not Available [facility] ([facility]) [address] [facility] [place], [address], 09/29/2024 20:06:18 09/29/19 25 09/29/2024 COMP. METAB OLIC PANEL (14) BUN 21 mg/dL 8-27 normal Not Available [facility] ([facility]) [address] [facility] [place], [address], 09/29/2024 20:06:18 09/29/19 25 09/29/2024 COMP. METAB OLIC PANEL (14) creatinine 1.04 mg/dL 0.57-1 .00 above high normal Not Available [facility] ([facility]) [address] [facility] [place], [address], 09/29/2024 20:06:18 09/29/19 25 09/29/2024 COMP. METAB OLIC PANEL (14) eGFR 56 mL/mi n/1.7 3 >59 below low normal Not Available [facility] ([facility]) [address] [facility] [place], [address], 09/29/2024 20:06:18 09/29/19 25 09/29/2024 COMP. METAB OLIC PANEL (14) BUN/creatini ne ratio 20 12-28 normal Not Available [facility] ([facility]) [address] [facility] [place], [address], 09/29/2024 20:06:18 09/29/19 25 09/29/2024 COMP. METAB OLIC PANEL (14) potassium 4.3 mmol/ L 3.5-5. 2 normal Not Available [facility] ([facility]) [address] [facility] [place], [address], 09/29/2024 20:06:18 09/29/19 25 09/29/2024 COMP. METAB OLIC PANEL (14) carbon dioxide, total 24 mmol/ L 20-29 normal Not Available [facility] ([facility]) [address] [facility], [place], [address], 09/29/2024 20:06:18 09/29/19 25 09/29/2024 COMP. METAB OLIC PANEL (14) calcium 9.1 mg/dL 8.7-10 .3 normal Not Available [facility] ([facility]) [address] [facility] [place], [address], 09/29/2024 20:06:18 09/29/19 25 09/29/2024 COMP. METAB OLIC PANEL (14) protein, total 6.8 g/dL 6.0-8. 5 normal Not Available [facility] ([facility]) [address] [facility] [place], [address], 09/29/2024 20:06:18 09/29/19 25 09/29/2024 COMP. METAB OLIC PANEL (14) albumin 3.9 g/dL 3.8-4. 8 normal Not Available [facility] ([facility]) [address] [place], [address], 09/29/2024 20:06:18 05/02/20 25 09/29/2024 COMP. METAB OLIC PANEL (14) globulin, total 2.9 g/dL 1.5-4. 5 Not Available [facility] ([facility]) [address] [facility] [place], [address], 09/29/2024 20:06:18 09/29/19 25 09/29/2024 COMP. METAB OLIC PANEL (14) alkaline phosphatase 100 IU/L 44-121 normal Not Available [facility]) [address] [facility] [place], [address], 09/29/2024 20:06:18 09/29/19 25 09/29/2024 COMP. METAB OLIC PANEL (14) AST (SGOT) 23 IU/L 0-40 normal Not Available [facility] ([facility]) [address] [facility] [place], [address], 09/29/2024 20:06:18 09/29/19 25 09/29/2024 COMP. METAB OLIC PANEL (14) ALT (SGPT) 16 IU/L 0-32 normal Not Available [facility] ([facility]) [address] [place], [address], 09/29/2024 20:06:18 09/29/19 25 09/29/2024 MAGNE SIUM magnesium 1.0 mg/dL 1.6-2. 3 below low normal Not Available [facility] ([facility]) [address] [place], [address], 09/29/2024 20:06:18 09/29/19 25 09/29/2024 CALCI UM, IONIZ ED, SERUM calcium, ionized, serum 5.1 mg/dL 4.5-5. 6 Not Available [facility] ([facility]) [address] [place], [address], 09/29/2024 20:06:18 10/10/19 25 10/10/2024 TSH+F REE T4 TSH 4.610 uIU/m L 0.450- 4.500 above high normal Not Available [facility] ([facility]) [address] [facility], [place], [address], 10/10/2024 10:06:51 10/10/19 25 10/10/2024 TSH+F REE T4 T4,free(dire ct) 1.44 NG/dL 0.82-1 .77 normal Not Available [facility] ([facility]) [address] [place], [address], 10/10/2024 10:06:51 10/10/1910/10/2024 MAGNE SIUM magnesium 1.3 mg/dL 1.6-2. 3 below low normal Not Available [facility] ([facility]) [address] [place], [address], 10/10/2024 18:06:48 11/07/19 25 11/07/2024 VITAM IN D, 25-HY DROXY vitamin D, 25-hydroxy 58.0 NG/mL 30.0-1 00.0 Vitam in D defic iency has been defin ed by the Insti tute of Medic ine and an Endoc rine Socie ty pract ice guide line as a level of serum 25-OH vitam in D less than 20 ng/mL (1,2) . The Endoc rine Socie ty went on to fur er defin e vitam in D insuf ficie ncy as a level betwe en 21 and 29 ng/mL (2). 1. IOM (Inst itute of Medic ine). 2010. Dieta ry refer ence intak es for calci um and D. Erlinda rhodes [place]: The Natio nal [facility] Press . 2. Duy watson [place], Yenni angel [place], Danette off-F errar i DAN, et al. Evalu ation , treat ment, and preve ntion of vitam in D defic iency : an Endoc rine Socie ty clini whit pract ice guide line. JCEM. 2010; 96(7) :1911 -30. Not Available [facility] ([facility]) [address], [place], [address], 11/07/2024 08:07:32 11/07/19 25 11/07/2024 MAGNE SIUM magnesium 1.6 mg/dL 1.6-2. 3 normal Not Available [facility] ([facility]) [address], [place], [address], 11/07/2024 08:07:33 09/12/19 25 07/25/2024 US, echoc ardio gram No observ ation record ed. [email or web address] Not Available 08/28 22:38:01 09/12/19 25 12/31/2021 MAMMO , scree ramiro, digit al, bilat eral No observ ation record ed. [email or web address] Not Available 08/28 22:38:43 Result Notes None recorded. 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 Active 2024 Chanell Tere m [place] [facility] 22:45:40 Primary malignant neoplasm of right lung 446913187 Active 2024 Chanell Tere m [place], [place] [facility] 22:45:49 Chronic kidney disease 025017728 Active 2024 Chanell Carranza bob null, [place] [facility] 22:46:03 Claustropho veto 05636643 Active 2024 Chanell Carranza m [place] [facility] 22:46:10 Chronic obstructive pulmonary disease 97898038 Active 2024 Chanell Carranza bob null, [place] [facility] 22:46:16 Gastroesoph ageal reflux disease 968044433 Active 2024 Chanell rojsa null, [place] [facility] 22:46:21 Hypertensiv e disorder 60180908 Active 2024 Chanell Carranza m [place] [facility] 22:46:31 Hypocalcemi a 7332837 Active 2024 Nikki Banda, YORDAN [address] [facility] [address], [place], [address], [place] [facility] 09:51:07 Hypothyroid ism 85532649 Active 2024 Chanell Carranza m null, [place] [facility] 22:46:44 Cyst of left ovary 3853161118889 9108 Active 2024 Chanell rojas null, [place] [facility] 22:47:09 Major depressive disorder 137600886 Active 2024 Chanlel rojas null, [place] [facility] 22:47:30 Panic attack 416756708 Active 2024 Chanell rojas null[place] [facility] 22:47:39 Psoriasis 3951446 Active 2024 Chanell Carranza m [place] [facility] 22:47:48 Malignant tumor of kidney 995083756 Active 2024 Chanell Carranza m [place] [facility] 22:47:54 Right bundle branch block 73372876 Active 2024 Chanell Carranza m [place] [facility] 22:47:59 Urinary incontinenc e 194339524 Active 2024 Chanell Carranza m [place] [facility] 22:48:10 Atrophic vaginitis 65741389 Active 2024 Chanell Carranza m [place] [facility] 22:48:21 Secondary hyperparath yroidism 06106642 Active 2024 BEVERLY LIGHT [address] [facility] [address], [place], [address], [place] [facility] 5 12:06:55 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 Procedures Surgical History Date Name Laterality Status Provider Name and Address Organization Details Recorded Time 12/31 Most Recent Mammogram completed Chanell Indra [place] - [facility] 5 22:38:51 Cataract Surgery completed [facility] 5 22:48:35 bilobectomy of lung completed Chanell [facility] 5 22:48:50 [facility]roduoden[facility] 22:[facility] Imaging Results None recorded. Procedure Notes None recorded. Medical Equipment None Reported. Allergies Allergen ID Allergen Name Allergen Category Reaction Reaction Severity Criticality Documentation Date Start Date Code Code System Note Provider Name and Address Organization Details Recorded Time 7587 house dust allergeni c extract environme nt,medica tion Not available Not available Not available 09/11/2024 95044 9 RxNorm Chanell [place], [place] - [facility] 5 22:40:30 7588 mold extract environme nt Not available Not available Not available 09/11/2024 50932 8 RxNorm Chanell fountain, [place] [facility] 22:40:35 7589 grass pollen environme nt,medica tion Not available Not available Not available 09/11/2024 56602 UNK Chanell fountain, [place] [facility] 22:40:43 7590 amlodipin e medicatio n Not available Not available Not available 09/11/2024 55650 RxNorm BEVERLY LIGHT [address] [facility] [address], [place], [address], [place] [facility] 13:07:24 7591 barium sulfate medicatio n Not available Not available Not available 09/11/2024 1331 RxNorm BEVERLY LIGHT [address] [facility], [facility] [address], [place], [address], [place] [facility] 13:07:36 7592 gabapenti n medicatio n Not available Not available Not available 09/11/2024 46138 RxNorm BEVERLY LIGHT [address] [facility], [facility] [address], [place], [address], [place] [facility] 13:07:44 Medications Name Sig Start Date Stop Date Status Note LastModified by Organization Details LastModified Time atorvastati n 40 mg tablet Take 1 tablet every day by oral route. active Not Available Not Available No t Available trazodone 50 mg tablet TAKE 1/2 TABLET BY MOUTH EVERY DAY AT BEDTIME active Not Available Not Available No t Available cefpodoxime 200 mg tablet TAKE 1 TABLET BY MOUTH EVERY 12 HOURS FOR 3 DAYS 09/13 completed Not Available Not Available Not Available azithromyci n 250 mg tablet TAKE 2 TABLETS BY MOUTH TODAY, THEN TAKE 1 TABLET DAILY FOR 4 DAYS DIRECTED 09/13 completed Not Available Not Available Not Available citalopram 10 mg tablet TAKE 1 TABLET BY MOUTH EVERY DAY active Not Available Not Available No t Available cephalexin 250 mg capsule TAKE 1 CAPSULE BY MOUTH EVERY 6 HOURS active Not Available Not Available No t Available prednisone 20 mg tablet TAKE 2 TABLETS BY MOUTH EVERY DAY FOR 5 DAYS 09/13 completed Not Available Not Available Not Available metoprolol succinate ER 100 mg tablet,exte nded release 24 hr TAKE 1 TABLET BY MOUTH EVERY DAY active Not Available Not Available No t Available leflunomide 10 mg tablet TAKE 1 TABLET DAILY 09/13 completed Not Available Not Available Not Available triamcinolo ne acetonide 0.1 % topical cream 1 APPLICATI ON TOPICALLY 3 TIMES A DAY,X14 DAYS 09/13 completed Not Available Not Available Not Available magnesium oxide 400 mg (241.3 mg magnesium) tablet TAKE 1 TABLET BY MOUTH TWICE A DAY active Not Available Not Available No t Available methotrexat e sodium 2.5 mg tablet TAKE 5 TABLETS BY MOUTH EVERY WEEK FOR 28 DAYS active Not Available Not Available No t Available levothyroxi ne 125 mcg tablet Take 1 tablet every day by oral route. active Not Available Not Available No t Available omeprazole 20 mg capsule,del ayed release Take 1 capsule every day by oral route. active Not Available Not Available No t Available folic acid 1 mg tablet TAKE 2 TABLETS BY MOUTH EVERY DAY active Not Available Not Available No t Available zolpidem 5 mg tablet TAKE 1 TABLET BY MOUTH EVERYDAY AT BEDTIME 09/13 completed Not Available Not Available Not Available ergocalcife rol (vitamin D2) 1,250 mcg (50,000 unit) capsule TAKE 1 CAPSULE EVERY WEEK BY ORAL ROUTE. active Not Available Not Available No t [...] completed Not Available Not Available Not Available cholecalcif ro (vitamin D3) 50 mcg (2,000 unit) capsule TAKE 1 CAPSULE BY MOUTH EVERY DAY FOR 14 DAYS active Not Available Not Available No t Available Lactobacill us acidoph-L.b ulgaricus 1 million cell tablet TAKE 4 TABLETS BY MOUTH 3 TIMES A DAY FOR 3 DAYS 09/13 completed Not Available Not Available Not Available Vitals Date Recorded Body weight Body mass index (BMI) Body height Heart rate Oxygen saturation Oxygen saturation in Arterial blood by Pulse oximetry Systolic And Diastolic Provider Name and Address Organization Details Last Updated DateTime 5 71032.8 5 g 27.7 kg/m2 157.48 cm 82 /min 98 % 98 % 140/90 mm[Hg] Mary Antoine merary [facility] 5 14:41:43 Date Recorded Body height Body mass index (BMI) Body weight Heart rate Oxygen saturation Oxygen saturation in Arterial blood by Pulse oximetry Systolic And Diastolic Provider Name and Address Organization Details Last Updated DateTime 5 157.48 cm 27.8 kg/m2 71934.0 4 g 65 /min 98 % 98 % 128/76 mm[Hg] [facility] 10:44:44 Date Recorded Body height Body mass index (BMI) Body weight Oxygen saturation Oxygen saturation in Arterial blood by Pulse oximetry Heart rate Systolic And Diastolic Provider Name and Address Organization Details Last Updated DateTime 5 157.48 cm 27.9 kg/m2 98854.1 4 g 99 % 99 % 78 /min 168/88 mm[Hg] Chanell rojas [facility] 5 09:38:26 Date Recorded Body height Body mass index (BMI) Body weight Oxygen saturation Oxygen saturation in Arterial blood by Pulse oximetry Heart rate Systolic And Diastolic Provider Name and Address Organization Details Last Updated DateTime 5 157.48 cm 28 kg/m2 74825.6 3 g 96 % 96 % 78 /min 190/82 mm[Hg] Chanell rojas [facility] 5 15:25:05 Social History Question Answer Notes LastModified by Organizat ion Details LastModified Time Tobacco Smoking Status Former Smoker Chanell Burrell александр [facility] 09/11/2024 22:41:15 When Did You Quit Smoking? 11-15yearssi chi wolff Information not available 09/13/2024 Sex: Unknown Functional Status None recorded. Mental Status None recorded. Family History Relationship Description Onset Age of this Age Resolved Age Notes LastModified by Organization Details LastModified Time Mother Diabetes mellitus new Not available 08/28 22:41:38 Mother Hyperlipidem ia [...] and Address Organization Details Recorded Time Tdap 2 completed Chanell Burrell null, [place] [facility] 09/11/2024 22:45:14 Influenza, high-dose, trivalent, PF 4 completed Not Available [facility] 10/09/2024 15:10:37 COVID-19, mRNA, LNP-S, PF, 100 mcg/0.5mL dose or 50 mcg/0.25mL dose 1 completed Not Available [facility] 10/09/2024 15:10:37 COVID-19, mRNA, LNP-S, PF, 30 mcg/0.3 mL dose 1 completed Not Available [facility] 10/09/2024 15:10:37 Influenza, high-dose, trivalent, PF 7 completed Not Available [facility] 10/09/2024 15:10:37 COVID-19, mRNA, LNP-S, PF, poncho-sucrose, 30 mcg/0.3 mL 4 completed Not Available [facility] 10/09/2024 15:10:37 Influenza, split virus, trivalent, preservative 1 completed Not Available [facility] 10/09/2024 15:10:37 COVID-19, mRNA, LNP-S, PF, 100 mcg/0.5mL dose or 50 mcg/0.25mL dose 1 completed Not Available [facility] 10/09/2024 15:10:37 Past Encounters Encounter ID Performer Location Encounter Start Date Encounter Closed Date Diagnosis/Indication Diagnosis SNOMED-CT Code Diagnosis ICD10 Code Diagnosis Note [id number] BEVERLY LIGHT Main Office [address] [place] [address] [address] [facility] [place] [id number] 09/13/2024 14:34:34 09/13/2024 15:17:01 First encounter by subject 663074161 Z76.89 The following time was spent on todays E/M encounter, including preparing for the visit, reviewing results, seeing the patient, and documentat ion on the date of service of the encounter: 65 [id number] 15-29 [id number] 03 30-44 [id number] 04 45-59 [id number] 05 60-74 [id number] 12 10-19 [id number] 13 20-29 14 30-39 [id number] 15 40-54 minutes Limited records at time of visit, review of most recent PCP and hospitaliz ation, pt close follow up to facilitate care History of malignant neoplasm of kidney 102798256 Z85.528 followed by oncology Secondary hyperparathyroidism 32685508 N25.81 secondary to CKD, multiple recent hospitaliz ations for low Vitamin D3, magnesium Currently on Mg+ supplement , Vitamin D3 supplement History of malignant neoplasm of thoracic cavity structure 456808811 Z85.118 followed by oncology and pulmonolog y Anxiety 23678597 F41.9 chronic, stable Chronic ki dney disease stage 3A 758816871 N18.31 [id number] BEVERLY LIGHT Main Office [address] [place] [address] [address] [place] [address] 09/20/2024 10:34:28 09/20/2024 11:11:34 Primary insomnia 6652101 F51.01 discussed sleep hygeine, will trial low dose Trazodonef ollow up 3 months sooner if problems Hyperparat hyroidism due to renal insufficiency 99025149 N25.81 secondary to CKD, multiple recent hospitaliz ations for low Vitamin D3, magnesium Currently on Mg+ supplement , Vitamin D3 supplement aware need for nephrology consultrec ent increase of her Vitamin D 3 to 50,000 units twice weekly, Mg+ Ca+ trending up [id number] Nikki Banda NP Main Office [address] [place] [address] [address] [place] [id number] 09/28/2024 09:33:26 09/28/2024 10:56:01 Swelling of bilateral feet 805667665 M79.89 Hypocalcemia 2693454 E83 .51 Hypomagnesemia 932020679 E83.42 [id number] Selene Sol NP Main Office [address] [place] [address] [address] [place] [id number] 10/09/2024 15:09:13 10/17/2024 14:04:46 Lamellar nail splitting 46358265 L60.3 Trial of biotin, moisturize r and cuticle oil. Follow up PRN. Cellulitis of right lower limb [id number] 0788470 L03.115 Will start antibiotic , if this does not resolve she will follow up for US. Hypertensive disorder 38 [id number] I10 Needs refill. Health Concerns Section Related Observation LastModified by Organization Detai ls LastModified Time None Recorded Concern Status LastModified by Organization Details LastModified Time None Recorded Advance Directives Directive None Recorded Payers Insurance Date Sequence Insurance Name Policy Number Policy Beauchamp Covered Member ID Beauchamp Member ID Guarantor Name 12/17/2024 2 [place] Brandy Templeton [id number] Brandy Templeton 12/17/2024 1 [place] [employer] Brandy Templeton [id number] Brandy Templeton Notes Date Note Type Note Provider Name and Address Organization Details Recorded Time 5 text/html here to establish care, limited medical records available at visitShe is accompanied by friendPMH:Dr Nichole in [place] for RA, OA and psoriatic arthritismetastatic renal [...] IV infusionSeen b her PCP BEVERLY LIGHT [address] [facility] [address], [place], [address], [place] - [employer] Primary 09/14/2024 15:13:04 5 text/html One week follow up from new patient visitHad labs done yesterday for previous provider, results unavailableRecent labs with Vitamin D3 17, Ca+ 7.9 Mg+1.1 PTH 44Has [facility] for 2 hours a weekDr Nichole recent visit for her RA had been on methotrexate, had labs, results unavailableHistory of CKD 3a, metastatic renal carcinoma, CKH secondary hyperparathyroidism, nephrology consult pending.Followed by oncoloby Dr Winters for renal cell carcinoma metastatic disease and h/o lung cancer with resections Dr Branch pulmonologistToday trouble with insomnia, can't fall asleep and wakes frequently to urinate and can't get back to sleep Tried cannabis gummies with no affect BEVERLY LIGHT [address] [facility] [address], [place], [address], [place] - [facility] 09/20/2024 13:17:28 5 text/html Brandy Templeton, 74-year-old female - Feet swelling started a day and a half ago, painful, worsens when laying flat, mostly painful when stepping on the underside. - History of low magnesium levels, previously treated with a 4-hour magnesium infusion. - Recent hospitalization within the last month for electrolyte imbalance, frequent blood tests conducted. - Hyperparathyroidism and vitamin D deficiency identified by previous provider. - History of COPD, uses inhaler for shortness of breath. - Mitral valve calcification noted in previous echocardiogram. - Occasional facial twitching, possibly related to parathyroid issues. - History of fluctuating blood pressure, previously low during hospitalization. Nikki Banda NP [address] [facility] [address], [place], [address], [facility] - [employer] Primary 09/28/2024 10:00:32 5 text/html She has been having trouble with her nails peeling. This has been happening for the past 3 weeks. No pain. She has not tried anything for it. She was at her granddaughter's game 5 days ago and got 2 bug bites. They have caused her leg and foot to swell. The bites are very itchy. She noticed the day after the bites she had pain and swelling into the calf and foot. She used elevation and ice. No fever. Selene Sol NP [address] [facility] [address], [place], [address], [facility] - [facility] 10/09/2024 15:39:32 OBGyn Episode No OBEpisode recorded.
--- OUTSIDE RECORDS SUMMARY | 2024-12-19 14:16 | XMS_ITS | Encounter Summary ---
Author Organization [facility], Address [address] [place] [address] Phone Care Team Providers Care Derrick Helper Name Role Phone Rama Baca CNP Primary Care Provider [phone] Encounter Details Date Type Department Care Team (Late st Contact Info) Description 10/10/2024 Documentation Only [facility], [address] [place] [address] [place], [place] [address] [place] [address] Social History Tobacco Use Types Packs/Day Years Used Date Smoking Tobacco: Never Assessed Comments Unknown Sex and Gender Information Value Date Recorded Sex Assigned at Not on file Legal Sex Female 4:42 PM EST Gender Identity Not on file Sexual Orientation Not on file documented as of this encounter Plan of Treatment Not on file documented as of this encounter Visit Diagnoses Not on filedocumented in this encounter Care Teams Derrick Helper Relationship Specialty Start Date End Date Rama Baca CNP [address] [place] [id number] PCP - General Nurse Practitioner 10/10/24 documented as of this encounter
== END 2024-12-19 14:15 | disposition home or self-care (01) ==
LOC: HO.RHES 13:39
PROVIDERS: PCP Family Medicine; Visit Provider Internal Medicine Rheumatology
DX: L40.50 Arthropathic psoriasis, unspecified (principal); M17.10 Unilateral primary osteoarthritis, unspecified knee; M25.519 Pain in unspecified shoulder; G89.29 Other chronic pain; G56.03 Carpal tunnel syndrome, bilateral upper limbs; Z79.899 Other long term (current) drug therapy
CPT/HCPCS: 20610; 99214

== ENCOUNTER → 2024-12-19 13:38 | Outpatient (BNVA) | payer MEDICARE, MEDICAID, SELFPAY | PROVIDERS: PCP Family Medicine; Visit Provider Internal Medicine Rheumatology | DX: M17.0 Bilateral primary osteoarthritis of knee (principal); L40.50 Arthropathic psoriasis, unspecified; M25.511 Pain in right shoulder; M25.512 Pain in left shoulder; G89.29 Other chronic pain; M19.012 Primary osteoarthritis, left shoulder; G56.03 Carpal tunnel syndrome, bilateral upper limbs; Z79.899 Other long term (current) drug therapy | CPT/HCPCS: 20610; 99212; J2003; J3300 ==

== ENCOUNTER 2025-04-02 13:00 | Outpatient (AMB) | payer MEDICARE, MEDICAID, SELFPAY ==
--- NOTE | 2025-04-02 13:01 | MHC.OFFVIS ---
Vital Signs 04/02/25 13:02 Height 5 ft 2 in Weight 155 lb 3.287 oz BMI 28.4 BP 140/80 H Blood Pressure Location Rt brachial Position Sitting Pulse 76 Pulse Source Pulse Oximeter Pulse Oximetry (%) 96 Oxygen Delivery Method Room Air Intake Visit Reasons: 3 months Intake Note: Patient present today for arthritis office visit. Accompanied by: Self / Same As Patient Allergies No Known Allergies Allergy (Verified 04/02/25 13:01) HPI HPI 3 months: Details: MS 30 minutes No new joint swelling PT is helping knee pain. She continues to have bilateral knee pain right worse than left. She is working with PT soon for shoulder strengthening. Her PCP's office we will be providing her with cortisone injection of bilateral shoulders PFSH Medical History Vitamin B 12 deficiency Parathyroid abnormality Family History Mother Psoriasis Father Psoriasis Social History Alcohol intake: never Patient Tobacco Use Status: Never used Tobacco Physical Exam Vital Signs: Last Vital Signs Pulse 76 04/02/25 13:02 BP 140/80 H 04/02/25 13:02 Pulse Ox 96 04/02/25 13:02 Oxygen Delivery Method Room Air 04/02/25 13:02 BMI result Body Mass Index 28.4 Const Other: General: Comfortable CVS: RRR Respiratory: clear to auscultation bilaterally. Good respiratory effort Skin: No lesions seen MSK: Tender bilateral MCPs, PIP, wrists, shoulders. Bilateral shoulder abduction 90 degrees with limited full internal and external rotation. Tender bilateral knees on palpation. Mild left knee effusion present. Bilateral Knee flexion 90 degrees. Valgus deformity of bilateral knees. Tender ankles. Office Procedures AMB Joint Injection/Aspiration Joint Injection/Aspiration Details: Bilateral knee joints Prep: site was prepped using aseptic technique Injected into each joint: 40 mg of, Kenalog, with 1 mL of and 1% plain lidocaine Procedure: Informed verbal consent was obtained. The patient tolerated the procedure well. Postprocedure protocol was discussed with patient. Coding - Bilateral Large Joint Procedure code (CPT) selection complete AMB Joint Injection/Aspiration Coding 30105 - Bilateral Large Joint Procedure code (CPT) selection complete Office Meds lidocaine (PF) 10 mg/mL (1 %) injection solution Performing Provider: Raffi Nichole MD Performing Location: [facility] Administered by: Alfredo Wing RN on 04/02/25 13:59 Dose Route Admin Location Dispensed Lot Number Expiration Date [place] [employer] 1 mL Infiltration 2 mL [id number] 10/26/26 76061-991-01 [employer] Total Dispensed Waste 2 mL 50 % Kenalog 40 mg/mL suspension for injection Performing Provider: Raffi Nichole MD Performing Location: [facility] Administered by: Alfredo Wing RN on 04/02/25 13:59 Dose Route Admin Location Dispensed Lot Number Expiration Date [place] [employer] 40 mg intra-articular 1 mL [id number] 11/26/26 [address]-2 [employer] Total Dispensed Waste 1 mL 0 % lidocaine (PF) 10 mg/mL (1 %) injection solution Performing Provider: Raffi Nichole MD Performing Location: [facility] Administered by: Alfredo Wing RN on 04/02/25 13:59 Dose Route Admin Location Dispensed Lot Number Expiration Date [place] [employer] 1 mL Infiltration 2 mL [id number] 10/27/26 90377-720-81 [employer] Total Dispensed Waste 2 mL 50 % Kenalog 40 mg/mL suspension for injection Performing Provider: Raffi Nichole MD Performing Location: [facility] Administered by: Alfredo Wing RN on 04/02/25 13:59 Dose Route Admin Location Dispensed Lot Number Expiration Date [facility] School Inspector 40 mg intra-articular 1 mL [id number] 11/26/26 [address]-2 [employer] Total Dispensed Waste 1 mL 0 % Assessment & Plan Assessment & Plan (1) Psoriatic arthritis: Comment: Better controlled on methotrexate. Rheumatology history: MTX 11/2024- Code(s): L40.50 - Arthropathic psoriasis, unspecified Category: Medical Plan: Labs for drug monitoring on high-risk medication ordered for patient to do local to her home Increase methotrexate to 15 mg once weekly Continue folic acid 2 mg daily Return to clinic in 3 months (2) Other half-way (current) drug therapy: Code(s): Z79.899 - Other predatory animal exterminator (current) drug therapy Category: Medical Plan: see above (3) Bilateral shoulder pain: Comment: Chronic. Limited range of motion right worse than left. Left x-ray shows mild osteoarthritis. Right x-ray is normal. I suspect chronic rotator cuff tendinopathy contributing to her limited range of motion and pain. Code(s): M25.511 - Pain in right shoulder; M25.512 - Pain in left shoulder Category: Medical Qualifiers: Chronicity: chronic Qualified Code(s): M25.511 - Pain in right shoulder; M25.512 - Pain in left shoulder; G89.29 - Other chronic pain Plan: She is starting physical therapy for shoulder strengthening She will be following up with primary care for consideration of cortisone injection (4) Carpal tunnel syndrome, bilateral: Comment: Improved with wearing wrist braces at night. Code(s): G56.03 - Carpal tunnel syndrome, bilateral upper limbs Category: Medical Plan: Continue to wear wrist braces at night (5) Osteoarthritis of knees, bilateral: Comment: Uncontrolled pain in bilateral knees. She has had improvement with PT. She is requesting cortisone injection this visit to better control her pain. Code(s): M17.0 - Bilateral primary osteoarthritis of knee Category: Medical Qualifiers: Osteoarthritis type: primary Qualified Code(s): M17.0 - Bilateral primary osteoarthritis of knee Plan: She received cortisone injection to bilateral knees Continue PT exercise program for strengthening Return to clinic in 3 months (6) Primary osteoarthritis, left shoulder: Code(s): M19.012 - Primary osteoarthritis, left shoulder Category: Medical Plan . Orders: Orders Complete Blood Count Auto Diff Today Z79.899 - Other predatory animal exterminator (current) drug therapy Aspartate Amino Transferase Today Z79.899 - Other half-way (current) drug therapy C Reactive Protein Today Z79.899 - Other half-way (current) drug therapy AMB Joint Injection/Aspiration Today M17.0 - Bilateral primary osteoarthritis of knee Alanine Aminotransferase Today Z79.899 - Other half-way (current) drug therapy Creatinine Today Z79.899 - Other predatory animal exterminator (current) drug therapy Erythrocyte Sedimentation Rate Today Z79.899 - Other half-way (current) drug therapy AMB Joint Injection/Aspiration Today M17.0 - Bilateral primary osteoarthritis of knee Medications: Changed From methotrexate sodium Take 5 tablets once weekly 12.5 mg (5 x 2.5 mg) PO QWEEK 28 days 20 tabs 2RF To methotrexate sodium 15 mg (6 x 2.5 mg) PO QWEEK 84 days 72 tabs 2RF From folic acid 2 mg (2 x 1 mg) PO DAILY 60 tabs 11RF To folic acid 2 mg (2 x 1 mg) PO DAILY 180 tabs 4RF 90 days Refilled methotrexate sodium 15 mg (6 x 2.5 mg) PO QWEEK 72 tabs 0RF 84 days Coding Level of Care Code Est Pt Level 4 (41690) Complex EM visit Add On G2211 Diagnoses Psoriatic arthritis L40.50 Other predatory animal exterminator (current) drug therapy Z79.899 Chronic pain of both shoulders M25.511; M25.512; G89.29 Chronicity: chronic Carpal tunnel syndrome, bilateral G56.03 Primary osteoarthritis of both knees M17.0 Osteoarthritis type: primary Primary osteoarthritis, left shoulder M19.012 CPT Codes Coding - 34577 - Bilateral Large Joint: 32216 - Bilateral Large Joint ([id number]) Coding - 92549 - Bilateral Large Joint: 56012 - Bilateral Large Joint ([id number])
[2025-04-02 13:02] VITALS: BP 140/80; PULSE 76; O2SAT 96; BMI 28.4
--- OUTSIDE RECORDS SUMMARY | 2025-04-02 15:40 | XMS_ITS | Clinical Summary ---
Author Organization [facility] Address [address] [facility] [address] [place] [address] Phone Care Team Providers Care Franchise Field Consultant Name Role Phone Evelia Brennan Primary Care Provider [phone] Encounters Date Type Department Care Team Description 02/13/2025 Transcribe Orders [facility] [address] [place] [address] Evelia Brennan PA Parathyroid abnormality (Primary Dx) 02/11/2025 Telephone [facility] [address] [place], [place] [phone] Lisandar Stoner referral from Last 3 Months Social History Tobacco Use Types Packs/Day Years Used Date Smoking Tobacco: Never Assessed Education Answer Date Recorded Are you interested in more education? Not on annie e 02/13/2025 Are you concerned about learning? Not on file 02/13/2025 No 02/13/2025 No 02/13/2025 Digital Access Answer Date Recorded No 02/13/2025 No 02/13/2025 Reliable internet access at home? Not on file 02/13/2025 Device with a working camera? Not on file Comments Unknown Sex and Gender Information Value Date Recorded Sex Assigned at Not on file Legal Sex Female 12:46 PM EDT Gender Identity Not on file Sexual Orientation Not on file Plan of Treatment Upcoming Encounters Date Type Department Care Team ([facility] st Contact Info) Description 07/03/2025 2:20 PM EST Office Visit [facility] [address] [place] [address] Krzysztof Galindo DO [address] [place] [address] [email or web address] Health Maintenance Due Date Last Done Comments Adult Td,Tdap Booster 1950 LIPID PANEL 1950 DEPRESSION SCREENING 1962 SMOKING Hx and SMOKELESS TOB ACCO SCREENING 1963 HEPATITIS C SCREENING 1968 MAMMOGRAM 1990 COLOGUARD 1995 COLONOSCOPY 1995 COLORECTAL CANCER SCREENING 1995 FIT TEST 1995 FOBT 1995 SIGMOIDOSCOPY 1995 VIRTUAL COLONOSCOPY 1995 PNEUMOCOCCAL VACCINES (50+ y ears) (1 of 1 - PCV) 2000 ZOSTER VACCINES (1 of 2) 2000 OSTEOPOROSIS SCREENING INITI AL (ONE-TIME) 2015 INFLUENZA VACCINE (#1) 2024 COVID-19 VACCINE ( - 2024-2 6 season) 2025 RSV VACCINE (1 - 1-dose 75+ series) 2025 HEPATITIS A VACCINES Aged Out No long er eligible based on patient's age to complete this topic HIB VACCINES Aged Out No longer eligi ble based on patient's age to complete this topic MENINGOCOCCAL VACCINES (ACWY) Aged Out No longer eligible based on patient's age to complete this topic MENINGOCOCCAL VACCINES (B) Aged Out N o longer eligible based on patient's age to complete this topic Medical Devices Not on file Insurance MEDICARE PART [place] & [place] & [facility] [place] [id number] MEDICARE PART A [place] [id number] Care Teams Franchise Field Consultant Relationship Specialty Start Date End Date Evelia Brennan PA [address], [address] [place], [place] [id number] PCP - General Physician Supervisor Mill 02/11/25 Additional Source Comments The information contained in this document represents components of the legal health record. It is not the complete legal health record.[facility]
== END 2025-04-02 13:39 | disposition home or self-care (01) ==
LOC: HO.RHES 13:01
PROVIDERS: PCP Family Medicine; Visit Provider Internal Medicine Rheumatology
DX: L40.50 Arthropathic psoriasis, unspecified (principal); Z79.899 Other long term (current) drug therapy; M25.511 Pain in right shoulder; M25.512 Pain in left shoulder; G89.29 Other chronic pain; G56.03 Carpal tunnel syndrome, bilateral upper limbs; M17.0 Bilateral primary osteoarthritis of knee; M19.012 Primary osteoarthritis, left shoulder
CPT/HCPCS: 20610; 99214

== ENCOUNTER → 2025-04-02 13:00 | Outpatient (BNVA) | payer MEDICARE, MEDICAID, SELFPAY | PROVIDERS: PCP Family Medicine; Visit Provider Internal Medicine Rheumatology | DX: M17.0 Bilateral primary osteoarthritis of knee (principal); M25.511 Pain in right shoulder; M25.512 Pain in left shoulder; G89.29 Other chronic pain; G56.03 Carpal tunnel syndrome, bilateral upper limbs; M19.012 Primary osteoarthritis, left shoulder; L40.50 Arthropathic psoriasis, unspecified; Z79.631 Long term (current) use of antimetabolite agent; Z79.899 Other long term (current) drug therapy | CPT/HCPCS: 20610; 99212; J2003; J3301 ==